=== PATIENT | female | born 1950 | race Caucasian/White ===

== ENCOUNTER 2024-09-25 10:08 | Observation (INO) | payer MEDICARE ==
[~2024-09-25] VITALS: Ht 165.1 cm; Wt 90.7 kg
[2024-09-25] VITALS (17 sets, daily range): BP systolic 99–172; BP diastolic 52–90
[2024-09-25] MEDS ORDERED: IPRATROPIUM-Albuterol 0.5MG-2.5MG/3 ML NEB ONE ×2 (10:15)
[2024-09-25] MEDS ORDERED: methylPREDNISolone SODIUM SUCC 125 MG/2 ML SDV IV ONE (10:15)
[2024-09-25] MEDS ORDERED: AZITHROMYCIN 500 MG in SODIUM CHLORIDE 0.9% 250 ML IV ONE (10:20)
[2024-09-25] MEDS ORDERED: cefTRIAXone SODIUM 2 GM in SODIUM CHLORIDE 0.9% 100 ML IV ONE (10:20)
[2024-09-25 10:35] LABS: BASO% 0.5 % (0-3); EOS% 1.8 % (0-8); HEMATOCRIT 34.6 % (37.0-47.0); HEMOGLOBIN 10.7 g/dl (12.0-16.0); IMMATURE GRANULOCYTES 0.2 % (0.0-5.0); LYMPH% 10.9 % (15-41); MEAN CELL VOLUME 95.8 fL CALC (80.0-100.0); MEAN CORPUSCULAR HGB 29.6 pG CALC (26.0-32.0); MEAN CORPUSCULAR HGB CONC 30.9 g/dL CAL (32.0-36.0); NEUT# 4.06 thou/uL (2.00-7.15); NEUT% 72.6 % (42-76); RED BLOOD COUNT 3.61 mill/uL (4.20-5.60); RED CELL DISTRI WIDTH 13.9 % (11.5-15.5)
[2024-09-25 10:56] LABS: ALBUMIN 3.9 g/dL (3.2-5.0); ALKALINE PHOSPHATASE 64 u/l (38-126); ANION GAP 15 (6-22 (CALC)); BILIRUBIN, TOTAL 0.6 mg/dL (0.02-1.3); BUN 16 mg/dL (8-23); BUN/CREATININE RATIO 14 (12-20 (CALC)); CARBON DIOXIDE 23 mmol/l (22-30); CHLORIDE 100 mmol/l (95-108); CREATININE 1.1 mg/dL (0.5-1.0); ESTIMATED GFR 52 ML/MIN (>=90 (CALC)); POTASSIUM 4.6 mmol/l (3.5-5.1); SGOT/AST 51 u/l (9-36); SODIUM 134 mmol/l (137-146); TOTAL PROTEIN 6.9 g/dL (6.3-8.2)
[2024-09-25] MEDS ORDERED: ACETAMINOPHEN 325 MG/TAB PO PRN (12:10)
[2024-09-25] MEDS ORDERED: MAGNESIUM HYDROXIDE 30 ML UDC PO PRN (12:10)
[2024-09-25] MEDS ORDERED: FUROSEMIDE 40 MG/4 ML SDV IV SCH (13:00)
[2024-09-25] MEDS ORDERED: GUAIFENESIN 200 MG/10 ML UDC PO PRN (13:30)
[2024-09-25] MEDS ORDERED: IPRATROPIUM BROMIDE 0.5 MG/2.5 ML SOL IN SCH (15:00)
[2024-09-25] MEDS ORDERED: LEVALBUTEROL HCL 1.25 MG/3 ML VIAL NEB SCH (15:00)
[2024-09-25] MEDS ORDERED: RIVAROXABAN 20 MG TAB PO SCH (17:30)
[2024-09-25] MEDS ORDERED: FLECAINIDE ACETATE 50 MG TAB PO SCH ×2 (21:00)
[2024-09-25] MEDS ORDERED: methylPREDNISolone Sod Succ 40 MG/ML SDV IV SCH (21:00)
[2024-09-26 04:53] VITALS: BP 151/85
[2024-09-26 05:51] LABS: ALBUMIN 3.9 g/dL (3.2-5.0); CHOLESTEROL HDL RATIO 2.4 (<4.4 (CALC)); CREATININE 1.1 mg/dL (0.5-1.0); HEMATOCRIT 31.2 % (37.0-47.0); HEMOGLOBIN 10.3 g/dl (12.0-16.0); IMMATURE GRANULOCYTES 0.9 % (0.0-5.0); LYMPH% 9.5 % (15-41); MAGNESIUM 1.9 mg/dL (1.6-2.3); MEAN CELL VOLUME 93.7 fL CALC (80.0-100.0); MEAN CORPUSCULAR HGB 30.9 pG CALC (26.0-32.0); MONO% 5.5 % (2-13); NEUT# 3.55 thou/uL (2.00-7.15); NEUT% 84.1 % (42-76); RED BLOOD COUNT 3.33 mill/uL (4.20-5.60); RED CELL DISTRI WIDTH 13.8 % (11.5-15.5); TOTAL PROTEIN 6.8 g/dL (6.3-8.2)
[2024-09-26 05:55] LABS: BILIRUBIN, TOTAL 0.3 mg/dL (0.02-1.3)
[2024-09-26 07:08] VITALS: BP 161/89
[2024-09-26] MEDS ORDERED: MULTIPLE VITAMIN TABLET PO SCH (09:00)
[2024-09-26] MEDS ORDERED: PARoxetine 10 MG/TAB PO SCH (09:00)
[2024-09-26] MEDS ORDERED: PANTOPRAZOLE SODIUM Sesquihydr 40 MG/TAB PO SCH (09:00)
[2024-09-26] MEDS ORDERED: cefTRIAXone SODIUM 2 GM in SODIUM CHLORIDE 0.9% 100 ML IV SCH (09:00)
[2024-09-26] MEDS ORDERED: FOLIC ACID 1 MG/TAB PO SCH (09:00)
[2024-09-26] MEDS ORDERED: METOPROLOL SUCCINATE 25 MG/TAB-TOPROL XL PO SCH (09:00)
[2024-09-26] MEDS ORDERED: OMNICEF300 MG PO (09:02)
[2024-09-26] MEDS ORDERED: ZITHROMAX250 MG PO (09:02)
[2024-09-26 09:03] VITALS: BP 161/89
[2024-09-26] MEDS ORDERED: FLUTICASONE PROPIONATE (Nasal) 50MCG/SPRAY INH SCH (10:00)
[2024-09-26] MEDS ORDERED: AZITHROMYCIN 500 MG in SODIUM CHLORIDE 0.9% 250 ML IV SCH (11:00)
== END 2024-09-26 10:48 | disposition home or self-care (01) ==
LOC: ED 10:08 → ED-I 10:31 → ED 10:31 → ED-I 11:20 → ED 12:30 → MS2 12:31
PROVIDERS: Family Medicine; ADMIT Student in an Organized Health Care Education/Training Program; ATTEND Student in an Organized Health Care Education/Training Program
DX: J18.9 Pneumonia, unspecified organism (principal); R09.02 Hypoxemia; I11.0 Hypertensive heart disease with heart failure; I50.9 Heart failure, unspecified; I48.0 Paroxysmal atrial fibrillation; K21.9 Gastro-esophageal reflux disease without esophagitis; D64.9 Anemia, unspecified; Z79.01 Long term (current) use of anticoagulants; Z20.822 Contact with and (suspected) exposure to COVID-19
CPT/HCPCS: J0456